=== PATIENT | male | born 1980 | race African-American/Black ===

== ENCOUNTER 2017-08-31 10:13 | Emergency (ER) | payer BC, MEDICARE, OTHER ==
[~2017-08-31] VITALS: Ht 180.3 cm; Wt 150.0 kg
[~2017-08-31 10:13] MED LIST: AMIT50 PO; ATOR20TA PO; GEOD20CA PO; IBUP800T23 PO; LANTUS2P SQ; LISI40TA PO; LYRI150C PO; METF500 PO; NOVOLOGSS SQ; OMEP20TA39 PO; RIVA20 PO; XANA1TAB6 PO; ZIPR40 PO
[2017-08-31 10:15] VITALS: BP 132/89; PULSE 109; RESP 14; TEMP 98.2; O2SAT 98
[2017-08-31] MEDS ORDERED: GEOD80CA PO (10:34)
[2017-08-31] MEDS ORDERED: PRIL20TA2 (10:34)
[2017-08-31] MEDS ORDERED: ACETAMINOPHEN 500 MG CPLT PO ONE (10:45)
--- NOTE | 2017-08-31 10:45 | PD ---
HPI Chief Complaint: Injury Time Seen by Provider: 10:40 Travel History International Travel<30 days: No Contact w/Intl Traveler<30days: No Traveled to known affect area: No History of Present Illness HPI 37-year-old male presents to emergency department with complaint of left foot and ankle pain after slamming it in his car door this morning. Report occasional paresthesias, but denies at this time. Denies loss of sensation. Has been ambulatory on the affected extremity since after the injury occurred. Rates pain 10. Describes it as a throbbing sensation. Has not taken any medication or tried any treatments to alleviate his symptoms. Worse with palpation and ambulation. Decreased bowel at rest. No known allergies. Dr. Joseph is primary care provider. Patient of the [place]. History of hypertension , diabetes, pulmonary embolism and takes Xarelto. Has no other medical complaints. No other modifying factors or associated signs and symptoms. PFSH Past Medical History Hx Anticoagulant Therapy: Yes (XARELTO) Cardiovascular Problems: Yes Diabetes: Yes Hypertension: Yes Psychiatric: Yes (ptsd) Respiratory: Yes (PE) Past Surgical History Other Surgery: Yes (epididectomy ) Social History Alcohol Use: No Tobacco Use: No Substance Use: No Allergies-Medications (Allergen,Severity, Reaction): Coded Allergies: No Known Allergies (Unverified , 12/23/15) Reported Meds & Prescriptions Reported Meds & Active Scripts Active Reported Geodon (Ziprasidone) 80 Mg Cap 80 Mg PO BID Prilosec (Omeprazole Magnesium) 20 Mg Tab Unknown Dose BID Glucophage 500 mg (Metformin HCl) 500 Mg Tab 500 Mg PO BIDPC Elavil 50 Mg Tab (Amitriptyline HCl) 50 Mg Tab 75 Mg PO HS Xanax 1 mg (Alprazolam) Alprazolam 1 mg Tab 0.5 Mg PO QID Lyrica (Pregabalin) 150 Mg Cap 150 Mg PO BID Atorvastatin 20 mg tab (Atorvastatin Calcium) 20 Mg Tab 1 Tab PO HS Xarelto 20 Mg Tab (Rivaroxaban) 20 Mg Tab 20 Mg PO HS Prinivil 40 mg (Lisinopril) 40 Mg Tab 1 Tab PO DAILY Novolog Insulin Supplemental Scale (Insulin Aspart) 100 /Ml Inj 1-9 Units SQ TIDACHS Max dose at bedtime:( )units; sugars less than 70, (0)units; sugars 150-199, (1)units; sugars 200-249, (3)units; sugars 250-299, (5)units; sugars 300-349,(7)units; sugars greater than 349, (9)units Lantus (Insulin Glargine) 100 Units/Ml Inj 65 Unit SQ BID Review of Systems Except as stated in HPI: all other systems reviewed are Neg Physical Exam Narrative GENERAL: Well-nourished, well-developed black male patient, in no acute distress SKIN: Warm and dry. HEAD: Atraumatic. Normocephalic. EYES: Pupils equal and round. No scleral icterus. No injection or drainage. ENT: Mucosa pink and moist. Airway patent. NECK: Trachea midline. CARDIOVASCULAR: Regular rate. RESPIRATORY: No accessory muscle use. GASTROINTESTINAL: Obese. MUSCULOSKELETAL: Left ankle with point tenderness to the lateral and medial malleolar zone; no obvious deformities; without erythema, ecchymosis. Left foot is edematous and with tenderness on palpation to the mid foot sounds; no obvious deformity; without erythema, ecchymosis. Left lower extremity supple and non-tense with 2+ pedal pulses and sensory intact. No obvious deformities. No clubbing. No cyanosis. No edema. NEUROLOGICAL: Awake and alert. Oriented 3. No obvious cranial nerve deficits. Motor grossly within normal limits. Normal speech. PSYCHIATRIC: Appropriate mood and affect; insight and judgment normal. Data Data Last Documented VS Vital Signs Date Time Temp Pulse Resp B/P (MAP) Pulse Ox O2 Delivery O2 Flow Rate FiO2 08/31/17 10:15 98.2 109 14 132/89 (103) 98 Orders Orders Acetaminophen (Tylenol) (08/31/17 10:45) Ankle, Complete ([id number]) (08/31/17 10:44) Foot, Complete ([id number]) (08/31/17 10:44) Ct Ankle W/O Contrast (08/31/17 ) MDM Medical Decision Making Medical Screen Exam Complete: Yes Emergency Medical Condition: Yes Medical Record Reviewed: Yes Differential Diagnosis Fracture, contusion, sprain, injury Narrative Course 37-year-old male with left foot/ankle injury. Tylenol, left foot and left ankle x-ray ordered. 1135: Left foot and ankle x-ray concludes: Foot X-Ray 08/31/17 1044 Signed Impressions: Service Date/Time: Thursday, August 31, 2017 11:00 - CONCLUSION: Previous surgery to the first toe. Healed fractures as above. Rodolfo Reyes MD Ankle X-Ray 08/31/17 1044 Signed Impressions: Service Date/Time: Thursday, August 31, 2017 10:58 - CONCLUSION: Large bone fragment approximate 7 x 9 mm across between the tip malleolus and talus likely an avulsion fracture, age indeterminate. If there is concern for a avulsion fracture a noncontrast CT scan through the ankle is recommended Rodolfo Reyes MD Discussed findings with the patient. Left ankle CT scan ordered. 1142: I did speak with Dr. Quiroz in regards to the x-ray findings; he reviewed the x-rays and suggested a splint and outpatient follow-up if there is no further findings on CT. 1253: CT ankle concludes: No evidence of acute bony injury; 7 mm oval corticated ossific density in the anterior lateral ankle has an appearance characteristic of an old avulsion injury. Samy bandage, ankle stirrup splint, crutches provided for support. Short course of [place] prescribed for home, as patient is on less tenderness and cannot take NSAIDs. Instructed patient to follow up with orthopedics if symptoms persist greater than 7-10 days. Instructed patient to follow up with primary care provider. Patient verbalizes understanding and agreement with treatment plan. Patient is medically cleared and stable for discharge. Discussed reasons to return to the emergency department. Patient agrees with treatment plan. The patients vital signs are stable and the patient is stable for outpatient follow-up and treatment. Patient discharged home, stable and in no acute distress. Diagnosis Primary Impression: Ankle sprain Qualified Codes: S93.402A - Sprain of unspecified ligament of left ankle, initial encounter Referrals: Mart Duval MD Orthopaedic Surgeon Primary Care Physician Patient Instructions: Ankle Sprain (ED), Crutch Instructions (ED), General Instructions Additional Instructions: Tylenol as directed and as needed for pain and inflammation Rest, ice, compress, and elevate extremity to decrease pain and inflammation Samy bandage and ankle stirrup splint for support Crutches for support Avoid aggravating activity; increase activity as tolerated Follow-up with primary care provider Follow-up with orthopedics if symptoms persist greater than 7-10 days Return to the emergency department immediately with worsening of symptoms Med/Other Pt SpecificInfo: Prescription(s) given Scripts Hydrocodone-Acetaminophen ([place]) 5 Mg-325 Mg Tab 1 TAB PO Q4H Y for PAIN, #8 TAB 0 Refills Prov: Kristin Mcneal 08/31/17 Disposition: 01 DISCHARGE HOME Condition: Stable Kristni Mcneal Aug 31, 2017 10:45
--- NOTE | 2017-08-31 11:20 | RADRPT ---
EXAM DATE/TIME: 08/31/2017 10:58 [facility] COMPARISON: No previous studies available for comparison. INDICATIONS : Slammed ankle in car door today. Pain anterior aspect. MEDICAL HISTORY : Diabetes mellitus type II. SURGICAL HISTORY : Bunionectomy. ENCOUNTER: Initial ACUITY: 1 day PAIN SCORE: 8/10 LOCATION: Left Ankle FINDINGS: Three view exam was performed of the left ankle. There is an ossific fragment between the lateral mal leolus and talus age indeterminant avulsion fracture. There does appear to be diffuse soft tissue swe lling.. The ankle mortise is intact. No radiopaque foreign bodies are seen. Bony mineralization is normal. CONCLUSION: Large bone fragment approximate 7 x 9 mm across between the tip malleolus and talus likely an avulsio n fracture, age indeterminate. If there is concern for a avulsion fracture a noncontrast CT scan through the ankle is recommended Rodolfo Reyes MD on August 31, 2017 at 11:16 Board Certified Radiologist. This report was verified electronically.
--- NOTE | 2017-08-31 11:24 | RADRPT ---
EXAM DATE/TIME: 08/31/2017 11:00 [facility] COMPARISON: No previous studies available for comparison. INDICATIONS : Slammed ankle in car door today. MEDICAL HISTORY : Diabetes mellitus type II. SURGICAL HISTORY : Bunionectomy. ENCOUNTER: Initial ACUITY: 1 day PAIN SCORE: 0/10 LOCATION: Left Foot. FINDINGS: Three view examination of the left foot demonstrates patient's had previous surgery to the first prox imal phalangeal bone. There is a deformity of the fifth metatarsal neck and the fifth proximal phalan ge of the likely healed fractures. No acute fracture is noted. joints are intact. The calcaneus is i ntact. Bony mineralization is normal. CONCLUSION: Previous surgery to the first toe. Healed fractures as above. Rodolfo Reyes MD on August 31, 2017 at 11:20 Board Certified Radiologist. This report was verified electronically.
--- NOTE | 2017-08-31 12:32 | RADRPT ---
EXAM DATE/TIME: 08/31/2017 12:06 [facility] COMPARISON: ANKLE LEFT COMPLETE ([id number]), August 31, 2017, 10:58. INDICATIONS : Left foot pain. RADIATION DOSE: 7.29 CTDIvol (mGy) MEDICAL HISTORY : Cardiovascular disease. Hypertension. Diabetes mellitus type 2. SURGICAL HISTORY : None. ENCOUNTER: Initial ACUITY: 1 day PAIN SCALE: 5/10 LOCATION: Left lower extremity TECHNIQUE: Volumetric scanning of the ankle was performed. Using automated exposure control and adjustment of t he mA and/or kV according to patient size, radiation dose was kept as low as reasonably achievable to obtain optimal diagnostic quality images. DICOM format image data is available electronically for review and comparison. FINDINGS: The examination was performed to characterize a 7 x 9 mm ossific density seen on conventional radiogr aphs between the lateral malleolus and talus. A CT examination demonstrates a well-corticated oval-sh aped ossific density located anteriorly between the tip of the lateral malleolus and talus. The appea jimmy suggests an old avulsion injury. No evidence of acute fracture. No significant or asymmetric so ft tissue thickening. Ankle mortise is intact. The tibiotalar facets are intact. CONCLUSION: 1. No evidence of acute bony injury. 2. 7 mm oval corticated ossific density in the anterior lateral ankle has an appearance characteristi c of an old avulsion injury. Reuben Siddiqui MD on August 31, 2017 at 12:23 Board Certified Radiologist. This report was verified electronically.
[2017-08-31] MEDS ORDERED: NORC5TAB PO (12:56)
== END 2017-08-31 13:26 | disposition home or self-care (01) ==
LOC: NEPK 10:13
DX: S93.402A Sprain of unspecified ligament of left ankle, initial encounter (principal); I10 Essential (primary) hypertension; E11.9 Type 2 diabetes mellitus without complications; F43.10 Post-traumatic stress disorder, unspecified; W22.8XXA Striking against or struck by other objects, initial encounter; Z86.711 Personal history of pulmonary embolism; Z79.4 Long term (current) use of insulin; Z79.899 Other long term (current) drug therapy
CPT/HCPCS: 29515; 73610; 73630; 73700; 99284; E0113; L1906

== ENCOUNTER 2018-01-02 08:47 | Emergency (ER) | payer MEDICARE, OTHER ==
[~2018-01-02] VITALS: Ht 180.3 cm; Wt 125.0 kg
[~2018-01-02 08:47] MED LIST changes: -GEOD20CA PO; +GEOD80CA PO; -IBUP800T23 PO; +NORC5TAB PO; -OMEP20TA39 PO; +PRIL20TA2; -ZIPR40 PO
[2018-01-02 08:52] VITALS: BP 108/58; PULSE 68; RESP 18; TEMP 98.4
[2018-01-02] MEDS ORDERED: NEXI40CA PO (09:00)
[2018-01-02] MEDS ORDERED: LISI40TA PO (09:01)
--- NOTE | 2018-01-02 09:30 | PD ---
HPI Chief Complaint: Fall Time Seen by Provider: 09:19 Travel History International Travel<30 days: No Contact w/Intl Traveler<30days: No Traveled to known affect area: No History of Present Illness HPI 37-year-old male came to the emergency room with history of a slip and fall today outside the [facility]. Patient says that he is leg gave way and he fell forward and was unable to control his fall and his right upper thigh hit the curb and his entire body weight fell on it. He was unable to get up because of the severe pain in the right groin and upper thigh area. EMS was called and patient was brought to the emergency room by the ambulance. Patient continues to localizes pain in that area. No radiation. Pain is worse upon movement. Vital signs are stable. Patient is on Xarelto but denies hitting his head. He is otherwise awake and answering questions appropriately. PFSH Past Medical History Narrative Medical List of her past medical, surgical, social and family history is reviewed from the nursing note Hx Anticoagulant Therapy: Yes (xarelto ) Anxiety: Yes Depression: Yes Cardiovascular Problems: Yes (HTN ) Diabetes: Yes Patient Takes Glucophage: Yes Diminished Hearing: No GERD: Yes Hypertension: Yes Neurologic: Yes (NEUROPATHY ) Psychiatric: Yes (PTSD) Respiratory: Yes (PE) Tetanus Vaccination: Unknown Influenza Vaccination: Yes Past Surgical History Other Surgery: Yes (epididectomy ) Social History Alcohol Use: No Tobacco Use: No Substance Use: No Allergies-Medications (Allergen,Severity, Reaction): Coded Allergies: No Known Allergies (Unverified Adverse Reaction, Unknown, 01/02/18) Comments List of her allergies reviewed from the nursing note Reported Meds & Prescriptions Reported Meds & Active Scripts Active Hydrocodone-Acetaminophen 5-325 mg Tab 1 Tab PO Q6H PRN [place] (Hydrocodone-Acetaminophen) 5 Mg-325 Mg Tab 1 Tab PO Q4H PRN Reported Xarelto (Rivaroxaban) 20 Mg Tab 20 Mg PO HS Lyrica (Pregabalin) 150 Mg Cap 150 Mg PO BID Metformin (Metformin HCl) 500 Mg Tab 500 Mg PO BIDPC Lantus Inj (Insulin Glargine) 1,000 Unit/10 Ml Vial 65 Units SQ BID Novolin R Inj (Insulin Human Regular) 1,000 Unit/10 Ml Vial 1-9 Units SQ ACHS Max dose at bedtime:( )units; sugars less than 70,(0) units; sugars 150-199,(1)unit; sugars 200-249,(3)units; sugars 250-299,(5) units; sugars 300-349,(7)units; sugars greater than 349,(9)units Atorvastatin (Atorvastatin Calcium) 20 Mg Tab 20 Mg PO HS Xanax (Alprazolam) 0.5 Mg Tab 0.5 Mg PO Q6H PRN Lisinopril 40 Mg Tab 40 Mg PO DAILY Nexium (Esomeprazole DR) 40 Mg Capdr 40 Mg PO DAILY Geodon (Ziprasidone) 80 Mg Cap 80 Mg PO BID Narrative Medication List of her home medications reviewed from the nursing note Review of Systems Except as stated in HPI: all other systems reviewed are Neg Musculoskeletal: Positive: Pain Physical Exam Narrative GENERAL: Awake, alert, obese, moderate distress SKIN: Focused skin assessment warm/dry. HEAD: Atraumatic. Normocephalic. EYES: Pupils equal and round. No scleral icterus. No injection or drainage. ENT: No nasal bleeding or discharge. Mucous membranes pink and moist. NECK: Trachea midline. No JVD. CARDIOVASCULAR: Regular rate and rhythm. No murmur appreciated. RESPIRATORY: No accessory muscle use. Clear to auscultation. Breath sounds equal bilaterally. GASTROINTESTINAL: Abdomen soft, non-tender, nondistended. Hepatic and splenic margins not palpable. MUSCULOSKELETAL: No obvious deformities. No clubbing. No cyanosis. No edema. Decreased range of motion at the right hip joint due to pain. Distal neurovascular intact. NEUROLOGICAL: Awake and alert. No obvious cranial nerve deficits. Motor grossly within normal limits. Normal speech. PSYCHIATRIC: Appropriate mood and affect; insight and judgment normal. Data Data Last Documented VS Vital Signs Date Time Temp Pulse Resp B/P (MAP) Pulse Ox O2 Delivery O2 Flow Rate FiO2 01/02/18 12:22 01/02/18 12:19 72 16 100 01/02/18 08:52 Room Air 01/02/18 08:52 98.4 Orders Orders Femur (Ap & Lat/2vws) (01/02/18 ) Pelvis, Ap Only (Routine) (01/02/18 ) Acetamin-Hydrocod 325-5 Mg ([place] 5-325 (01/02/18 09:45) Ketorolac Inj (Toradol Inj) (01/02/18 10:15) Ct Pelvis W/O Iv Contrast (01/02/18 ) Ct Femur W/O Iv Contrast (01/02/18 ) Ed Discharge Order (01/02/18 11:46) Crutches (01/02/18 11:50) MDM Medical Decision Making Medical Screen Exam Complete: Yes Emergency Medical Condition: Yes Medical Record Reviewed: Yes Differential Diagnosis Hip fracture, pelvic fracture, hip strain Narrative Course 10:33 AM patient was medicated pain. X-ray of the femur and pelvis is negative for any fracture. I have ordered a CT scan given the pain out of proportion and unable to mobilize his leg. If CT scan is negative for any fracture patient will be discharged home with crutches. Procedures EKG Prior to Arrival: No Diagnosis Primary Impression: Fall Qualified Codes: W19.XXXA - Unspecified fall, initial encounter Additional Impressions: Hip strain Qualified Codes: S76.011A - Strain of muscle, fascia and tendon of right hip, initial encounter Thigh contusion Qualified Codes: S70.11XA - Contusion of right thigh, initial encounter Referrals: Primary Care Physician Additional Instructions: Use crutches for comfort. Take the medication as per the prescription direction. Follow-up with your primary care. Med/Other Pt SpecificInfo: Prescription(s) given Scripts Hydrocodone-Acetaminophen (Hydrocodone-Acetaminophen) 5-325 mg Tab 1 TAB PO Q6H Y for PAIN, #6 TAB 0 Refills Prov: Blank Moreno MD 01/02/18 Disposition: 01 DISCHARGE HOME Condition: Stable Blank Moreno MD January 02, 2018 09:30
[2018-01-02] MEDS ORDERED: NOVORP2 SQ (09:43)
[2018-01-02] MEDS ORDERED: ATOR20TA15 PO (09:43)
[2018-01-02] MEDS ORDERED: LANTUS2P SQ (09:43)
[2018-01-02] MEDS ORDERED: ALPR.5 PO (09:43)
[2018-01-02] MEDS ORDERED: ACETAMINOPHEN/HYDROcodone 325 MG/5 MG TAB PO ONE (09:45)
[2018-01-02] MEDS ORDERED: METF500T PO (09:45)
[2018-01-02] MEDS ORDERED: LYRI150C PO (09:45)
[2018-01-02] MEDS ORDERED: XARE20TA PO (09:45)
--- NOTE | 2018-01-02 09:59 | RADRPT ---
EXAM DATE/TIME: 01/02/2018 09:44 [facility] COMPARISON: No previous studies available for comparison. INDICATIONS : Right sided hip pain after fall on curb today. MEDICAL HISTORY : None. SURGICAL HISTORY : None. ENCOUNTER: Initial ACUITY: 1 day PAIN SCORE: 5/10 LOCATION: Pelvis. FINDINGS: A single frontal view of the pelvis demonstrates no evidence of fracture. The bony pelvic ring is in tact. Bony mineralization is normal. The soft tissues are intact. CONCLUSION: Unremarkable examination of the pelvis. Chago Perez MD on January 02, 2018 at 9:57 Board Certified Radiologist. This report was verified electronically.
--- NOTE | 2018-01-02 09:59 | RADRPT ---
EXAM DATE/TIME: 01/02/2018 09:45 [facility] COMPARISON: No previous studies available for comparison. INDICATIONS : Right thigh pain after fall today on a curb. MEDICAL HISTORY : None. SURGICAL HISTORY : None. ENCOUNTER: Initial ACUITY: 1 day PAIN SCORE: 5/10 LOCATION: Right Femur. FINDINGS: Two view examination of the right femur demonstrates no evidence of fracture or dislocation. Bony mi neralization is normal. The soft tissue structures are intact. CONCLUSION: Unremarkable examination of the right femur. Chago Perez MD on January 02, 2018 at 9:57 Board Certified Radiologist. This report was verified electronically.
[2018-01-02] MEDS ORDERED: KETOROLAC TROMETHAMINE 60 MG/2 ML (IM) VIAL IM ONE (10:15)
--- NOTE | 2018-01-02 11:20 | RADRPT ---
EXAM DATE/TIME: 01/02/2018 10:31 [facility] COMPARISON: No previous studies available for comparison. INDICATIONS : Right hip pain after fall ORAL CONTRAST: No oral contrast ingested. RADIATION DOSE: 24.76 CTDIvol (mGy) MEDICAL HISTORY : Hypertension. Diabetes mellitus type 1. SURGICAL HISTORY : None. ENCOUNTER: Initial ACUITY: 1 day PAIN SCALE: 7/10 LOCATION: Right hip TECHNIQUE: Volumetric scanning of the pelvis was performed. Using automated exposure control and adjustment of the mA and/or kV according to patient size, radiation dose was kept as low as reasonably achievable t o obtain optimal diagnostic quality images. DICOM format image data is available electronically for review and comparison. FINDINGS: BOWEL/MESENTERY: The visualized small and large bowel demonstrate no acute abnormality. There is no free fluid. BLADDER: There is no wall thickening or mass. RETROPERITONEUM: There is no aneurysm or lymphadenopathy. REPRODUCTIVE: Within normal limits. INGUINAL: There is no lymphadenopathy or hernia. MUSCULOSKELETAL: Within normal limits for patient age. There is no evidence of acute fracture, paratracheal hematoma o r joint effusion. CONCLUSION: No acute disease. Omar Miller MD on January 02, 2018 at 11:17 Board Certified Radiologist. This report was verified electronically.
--- NOTE | 2018-01-02 11:26 | RADRPT ---
EXAM DATE/TIME: 01/02/2018 10:31 [facility] COMPARISON: No previous studies available for comparison. INDICATIONS : Right hip, thigh pain after fall RADIATION DOSE: 19.27 CTDIvol (mGy) MEDICAL HISTORY : Hypertension. Diabetes mellitus type 1. SURGICAL HISTORY : None. ENCOUNTER: Initial ACUITY: 1 day PAIN SCALE: 7/10 LOCATION: Right thigh TECHNIQUE: Volumetric scanning of the femur was performed. Using automated exposure control and adjustment of t he mA and/or kV according to patient size, radiation dose was kept as low as reasonably achievable to obtain optimal diagnostic quality images. DICOM format image data is available electronically for review and comparison. FINDINGS: BONES: No evidence of fracture. Alignment is within normal limits. JOINTS: No evidence of joint narrowing or effusion. SOFT TISSUES: Muscles, tendons, and neurovascular structures are grossly unremarkable. No evidence of mass, organiz ed fluid collection, or foreign body CONCLUSION: Normal examination. Chago Perez MD on January 02, 2018 at 11:00 Board Certified Radiologist. This report was verified electronically.
[2018-01-02] MEDS ORDERED: HYDR-3516 PO (11:50)
[2018-01-02 12:19] VITALS: BP 135/77; PULSE 72; RESP 16; O2SAT 100
== END 2018-01-02 12:25 | disposition home or self-care (01) ==
LOC: NEPD 08:47
DX: S76.011A Strain of muscle, fascia and tendon of right hip, initial encounter (principal); S70.11XA Contusion of right thigh, initial encounter; E11.9 Type 2 diabetes mellitus without complications; I10 Essential (primary) hypertension; K21.9 Gastro-esophageal reflux disease without esophagitis; F43.10 Post-traumatic stress disorder, unspecified; W01.0XXA Fall on same level from slipping, tripping and stumbling without subsequent striking against object, initial encounter; Z79.01 Long term (current) use of anticoagulants; Z79.4 Long term (current) use of insulin
CPT/HCPCS: 72170; 72192; 73552; 73700; 96372; 99284; E0113; J1885